=== PATIENT | male | born 1980 | race Caucasian/White ===

== ENCOUNTER 2018-02-19 14:39 | Emergency (ER) | payer OTHER ==
[2018-02-19 14:51] VITALS: BP 127/68
[2018-02-19] MEDS ORDERED: PROPARACAINE 0.5% OPHTH DROPS 15 ML EACHEYE STA (14:51)
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
== END 2018-02-19 15:09 | disposition home or self-care (01) ==
LOC: ED 14:39
DX: S05.02XA Injury of conjunctiva and corneal abrasion without foreign body, left eye, initial encounter (principal); W20.8XXA Other cause of strike by thrown, projected or falling object, initial encounter; Y93.I9 Activity, other involving external motion
CPT/HCPCS: 99281; 99283; J3490